=== PATIENT | female | born 1990 | race Hispanic/Latino ===

== ENCOUNTER 2018-04-22 21:43 | Inpatient (IN) | payer MEDICAID ==
[~2018-04-22] VITALS: Ht 162.6 cm; Wt 93.9 kg
[2018-04-22 22:21] LABS: APPEARANCE,URINE Cloudy (CLEAR); BILIRUBIN,URINE Negative (NEGATIVE); COLOR,URINE Dark Yellow (YELLOW); GLUCOSE, URINE (UA) Negative (NEGATIVE); KETONES,URINE Trace mg/dL (NEGATIVE); LEUKOCYTE ESTERASE ,URINE Moderate (NEGATIVE); NITRATE,URINE Negative (NEGATIVE); OCCULT BLOOD,URINE Large (NEGATIVE); PROTEIN,URINE Trace (NEGATIVE)
[2018-04-22 22:47] LABS: BACTERIA,URINE Few /HPF (None Seen); MUCUS,URINE Many LPF (None Seen); SQUAMOUS EPITHELIAL CELL,UR Many /HPF (0-2)
[2018-04-22 23:00] VITALS: BP 125/69
[2018-04-22] MEDS ORDERED: OXYTOCIN-LR 20 UNITS/1000 ML 1,000 ML IV SCH (23:00)
[2018-04-22] MEDS ORDERED: AMPICILLIN 2GM+NS 100ML 100 ML IV SCH (23:00)
[2018-04-22] MEDS ORDERED: FERS325 PO (23:03)
[2018-04-22] MEDS: LACTATED RINGERS 1000ML 1,000 ML IV PRN (23:14)
[2018-04-22 23:15] LABS: HEMATOCRIT 36.7 % (36-48); MEAN CORPUSCULAR HEMOGLOBIN 26.6 pg (27.0-33.0); MEAN CORPUSCULAR HGB CONC 32.6 g/dL (32.0-36.0); MEAN CORPUSCULAR VOLUME 81.5 fL (79-99); PLATELET COUNT (AUTO) 298 K/uL (130-400); RED CELL DISTRIBUTION WIDTH 16.2 % (11.0-15.5); WHITE BLOOD COUNT (AUTO) 14.5 K/uL (4.8-10.8)
[2018-04-23] MEDS ORDERED: LIDOCAINE HCL 1% 20 ML VIAL INJ PRN (00:30)
[2018-04-23] MEDS ORDERED: EPHEDRINE SULFATE 50 MG/ML AMPULE IVP PRN (00:45)
[2018-04-23] MEDS ORDERED: NALOXONE HCL 0.4 MG/1 ML ML IV PRN (00:45)
[2018-04-23] MEDS ORDERED: PROMETHAZINE HCL 25 MG/ML 1ML AMPULE IM PRN (00:45)
[2018-04-23] MEDS ORDERED: LACTATED RINGERS 500 ML 500 ML IV PRN (00:45)
[2018-04-23] MEDS ORDERED: ACETAMINOPHEN-CODEINE 300/30MG TAB PO ONE (00:45)
[2018-04-23] MEDS ORDERED: ROPIVACAINE 0.2%200ML EPIDURAL 200 ML EP SCH (00:45)
[2018-04-23] MEDS ORDERED: LACTATED RINGERS 1000ML 1,000 ML IV ONE ×2 (02:00→08:52)
[2018-04-23] MEDS ORDERED: OXYTOCIN 10 USP UNITS/ML ONE ×2 (02:00→08:53)
[2018-04-23] MEDS ORDERED: LIDOCAINE HCL-MPF 1% 2ML VIAL ONE (02:06)
[2018-04-23] MEDS ORDERED: ACETAMINOPHEN EXTRA STRENGTH 500 MG TABLET ONE (02:17)
[2018-04-23] MEDS: AMPICILLIN 1GM+NS 50ML 50 ML IV SCH ×4 (02:23→15:00)
[2018-04-23] MEDS: MEPERIDINE-PF 50 MG/ML SYG IVP PRN ×2 (02:51→07:00)
[2018-04-23] MEDS: LACTATED RINGERS 1000ML 1,000 ML IV PRN (05:40)
[2018-04-23] MEDS ORDERED: OXYTOCIN 10 USP UNITS/ML 20 UNIT in LACTATED RINGERS 1000ML 1,000 ML IV SCH (07:00)
[2018-04-23] MEDS ORDERED: IBUPROFEN 600 MG TABLET PO PRN (07:45)
[2018-04-23] MEDS ORDERED: BENZOCAINE/LANOLIN/ALOE VERA 60 ML AEROSOL TP PRN (07:45)
[2018-04-23] MEDS ORDERED: DIPH,PERTUSS(ACELL),TET VAC/PF 0.5 ML VIAL IM PRN (07:45)
[2018-04-23] MEDS ORDERED: MEASLES/MUMPS/RUBELLA VACCINE, LIVE 0.5 ML/VIAL SQ PRN (07:45)
[2018-04-23] MEDS ORDERED: LANOLIN 30GM OINTMENT TP PRN (07:45)
[2018-04-23] MEDS ORDERED: ACETAMINOPHEN 325 MG TAB PO PRN (07:45)
[2018-04-23] MEDS ORDERED: OXYTOCIN-LR 20 UNITS/1000 ML 1,000 ML IV SCH ×2 (07:45)
[2018-04-23] MEDS ORDERED: WITCH HAZEL 1 PAD TP PRN (07:45)
[2018-04-23 10:01] VITALS: BP 137/54
[2018-04-23] MEDS: DOCUSATE SODIUM 100 MG CAP PO SCH ×2 (10:14→22:13)
[2018-04-23 10:30] LABS: RAPID PLASMA REAGIN NONREACTIVE (NONREACTIVE)
[2018-04-23 11:34] VITALS: BP 98/60
[2018-04-23] MEDS: IBUPROFEN 100 MG/5 ML SUSP UDCUP PO PRN ×2 (16:03→22:52)
[2018-04-23 16:26] VITALS: BP 104/59
[2018-04-23 20:33] VITALS: BP 98/54
[2018-04-23] MEDS ORDERED: IBUPROFEN 100 MG/5 ML SUSP UDCUP ONE (22:30)
[2018-04-24 00:20] VITALS: BP 93/52
[2018-04-24 04:43] VITALS: BP 91/51
[2018-04-24 05:16] LABS: HEMATOCRIT 28.3 % (36-48); MEAN CORPUSCULAR HEMOGLOBIN 26.9 pg (27.0-33.0); MEAN CORPUSCULAR HGB CONC 32.5 g/dL (32.0-36.0); MEAN CORPUSCULAR VOLUME 82.7 fL (79-99); PLATELET COUNT (AUTO) 275 K/uL (130-400); RED BLOOD CELL COUNT(AUTO) 3.41 MIL/uL (4.00-5.50); RED CELL DISTRIBUTION WIDTH 16.5 % (11.0-15.5); WHITE BLOOD COUNT (AUTO) 15.4 K/uL (4.8-10.8)
[2018-04-24 07:23] VITALS: BP 91/51
[2018-04-24] MEDS: IBUPROFEN 100 MG/5 ML SUSP UDCUP PO PRN (08:11)
[2018-04-24 08:24] LABS: HEPATITIS Bs ANTIGEN SCREEN P Negative (Negative)
[2018-04-24] MEDS: DOCUSATE SODIUM 100 MG CAP PO SCH (09:10)
[2018-04-24 11:26] VITALS: BP 106/63
== END 2018-04-24 14:00 | disposition home or self-care (01) | DRG 560 ==
LOC: EDH 21:43 → LDH 21:44 → OBSVTOIN 22:57 → WSH 04-23 09:40
PROVIDERS: ADMIT Obstetrics & Gynecology; ATTEND Obstetrics & Gynecology
PROC: 10E0XZZ Delivery of Products of Conception, External Approach (ICD-10-PCS; principal; 2018-04-23)
PROC: 10907ZC Drainage of Amniotic Fluid, Therapeutic from Products of Conception, Via Natural or Artificial Opening (ICD-10-PCS; 2018-04-23)
PROC: 3E0R3BZ Introduction of Anesthetic Agent into Spinal Canal, Percutaneous Approach (ICD-10-PCS; 2018-04-23)
PROC: 00HU33Z Insertion of Infusion Device into Spinal Canal, Percutaneous Approach (ICD-10-PCS; 2018-04-23)
PROC: 3E0234Z Introduction of Serum, Toxoid and Vaccine into Muscle, Percutaneous Approach (ICD-10-PCS; 2018-04-23)
DX: O99.214 Obesity complicating childbirth (principal); E66.9 Obesity, unspecified; O70.1 Second degree perineal laceration during delivery; Z37.0 Single live birth; Z68.35 Body mass index [BMI] 35.0-35.9, adult; Z23 Encounter for immunization; Z3A.39 39 weeks gestation of pregnancy
CPT/HCPCS: 36415; 81001; 85027; 86592; 86701; 86850; 86900; 86901; 87340; 87390; 90715; A4314; J0290; J2175; J2550; J2590; J3490; J7120

== ENCOUNTER 2019-05-25 11:27 | Emergency (ER) | payer MEDICAID, OTHER ==
[~2019-05-25 11:27] MED LIST: FERS325 PO
== END 2019-05-25 12:20 | disposition home or self-care (01) ==
LOC: EDH 11:27
DX: J06.9 Acute upper respiratory infection, unspecified (principal)
CPT/HCPCS: 87804; 87880

== ENCOUNTER 2019-06-26 19:16 | Emergency (ER) | payer OTHER | END 2019-06-26 19:41 | disposition home or self-care (01) | LOC: EDH 19:16 | DX: J06.9 Acute upper respiratory infection, unspecified (principal) | CPT/HCPCS: 99281 ==

== ENCOUNTER 2019-09-27 22:46 | Emergency (ER) | payer OTHER, MEDICAID ==
[2019-09-27 23:20] LABS: APPEARANCE,URINE Clear (CLEAR); BILIRUBIN,URINE Negative (NEGATIVE); COLOR,URINE Yellow (YELLOW); GLUCOSE, URINE (UA) Negative (NEGATIVE); KETONES,URINE Negative (NEGATIVE); LEUKOCYTE ESTERASE ,URINE Trace (NEGATIVE); NITRATE,URINE Negative (NEGATIVE); OCCULT BLOOD,URINE Negative (NEGATIVE); PROTEIN,URINE Negative (NEGATIVE); UROBILINOGEN,URINE 0.2 mg/dL (0.2-1.0)
[2019-09-27 23:36] LABS: BACTERIA,URINE Rare /HPF (None Seen); RBC,URINE None Seen /HPF (0-1)
[2019-09-27] MEDS ORDERED: PHENAZOPYRIDINE HCL 200 MG TABLET PO ONE (23:56)
[2019-09-27] MEDS ORDERED: DICYCLOMINE HCL 10 MG/ML 2ML AMP IM ONE (23:56)
[2019-09-27] MEDS ORDERED: SULFAMETHOX-TMP DS 800/160 TAB PO ONE (23:57)
== END 2019-09-28 00:10 | disposition home or self-care (01) ==
LOC: EDH 22:46
DX: O23.41 Unspecified infection of urinary tract in pregnancy, first trimester (principal); Z3A.08 8 weeks gestation of pregnancy
CPT/HCPCS: 81001; 81025; 87088; 99284; J0500

== ENCOUNTER 2020-05-02 19:10 | Inpatient (IN) | payer MEDICAID ==
[~2020-05-02] VITALS: Ht 160 cm; Wt 92.1 kg
[2020-05-02 20:00] VITALS: BP 120/66
[2020-05-02 21:19] LABS: APPEARANCE,URINE Clear (CLEAR); BILIRUBIN,URINE Negative (NEGATIVE); COLOR,URINE Yellow (YELLOW); GLUCOSE, URINE (UA) Negative (NEGATIVE); KETONES,URINE 40 mg/dL (NEGATIVE); LEUKOCYTE ESTERASE ,URINE Small (NEGATIVE); NITRATE,URINE Negative (NEGATIVE); OCCULT BLOOD,URINE Negative (NEGATIVE); PH,URINE 5.5 (5.0-8.0); PROTEIN,URINE Trace mg/dL (NEGATIVE)
[2020-05-02 21:30] LABS: BACTERIA,URINE Few /HPF (None Seen)
[2020-05-02] MEDS ORDERED: AMPICILLIN 2GM+NS 100ML 100 ML IV SCH (21:30)
[2020-05-02 21:31] LABS: MUCUS,URINE Few LPF (None Seen); SQUAMOUS EPITHELIAL CELL,UR Moderate /HPF (0-2)
[2020-05-02] MEDS: LACTATED RINGERS 1000ML 1,000 ML IV PRN (21:46)
[2020-05-02 21:56] LABS: AMPHET/METH SCREEN,URINE NEGATIVE (NEGATIVE); BARBITURATE SCREEN, URINE NEGATIVE (NEGATIVE); BENZODIAZEPINES SCREEN,URINE NEGATIVE (NEGATIVE); CANNABINOID SCREEN,URINE NEGATIVE (NEGATIVE); COCAINE SCREEN,URINE NEGATIVE (NEGATIVE); OPIATE SCREEN,URINE NEGATIVE (NEGATIVE); PHENCYCLIDINE SCREEN,URINE NEGATIVE (NEGATIVE)
[2020-05-02 22:01] LABS: HEMATOCRIT 39.1 % (36-48); MEAN CORPUSCULAR HEMOGLOBIN 26.8 pg (27.0-33.0); MEAN CORPUSCULAR VOLUME 81.3 fL (79-99); RED BLOOD CELL COUNT(AUTO) 4.81 MIL/uL (4.00-5.50); RED CELL DISTRIBUTION WIDTH 15.9 % (11.0-15.5); WHITE BLOOD COUNT (AUTO) 8.5 K/uL (4.8-10.8)
[2020-05-03] MEDS: AMPICILLIN 1GM+NS 50ML 50 ML IV SCH ×4 (01:09→13:35)
[2020-05-03] MEDS ORDERED: PREN1TAB80 PO (02:40)
[2020-05-03] MEDS ORDERED: ACETAMINOPHEN 325 MG TAB PO ONE (02:45)
[2020-05-03] MEDS ORDERED: EPHEDRINE SULFATE 50 MG/ML AMPULE IVP PRN (03:45)
[2020-05-03] MEDS ORDERED: BUTORPHANOL TARTRATE 2 MG/ML IVP PRN (03:45)
[2020-05-03] MEDS ORDERED: LACTATED RINGERS 500 ML 500 ML IV PRN (03:45)
[2020-05-03] MEDS ORDERED: NALOXONE HCL 0.4 MG/1 ML ML IV PRN (03:45)
[2020-05-03] MEDS ORDERED: ROPIVACAINE 0.2% 100ML VIAL 100 ML EP PRN (03:45)
[2020-05-03] MEDS: LACTATED RINGERS 1000ML 1,000 ML IV PRN ×2 (03:55→09:26)
[2020-05-03] MEDS ORDERED: OXYTOCIN-LR 20 UNITS/1000 ML 1,000 ML IV ONE ×3 (04:34→16:30)
[2020-05-03] MEDS ORDERED: OXYTOCIN 10 USP UNITS/ML 20 UNIT in LACTATED RINGERS 1000ML 1,000 ML IV SCH (04:45)
[2020-05-03] MEDS ORDERED: ACETAMINOPHEN-CODEINE 300/30MG TAB PO PRN (14:30)
[2020-05-03] MEDS ORDERED: WITCH HAZEL 1 PAD TP PRN (14:30)
[2020-05-03] MEDS ORDERED: BENZOCAINE/LANOLIN/ALOE VERA 60 ML AEROSOL TP PRN (14:30)
[2020-05-03] MEDS ORDERED: ACETAMINOPHEN 325 MG TAB PO PRN (14:30)
[2020-05-03] MEDS ORDERED: LANOLIN 30GM OINTMENT TP PRN (14:30)
[2020-05-03] MEDS ORDERED: DIPH,PERTUSS(ACELL),TET VAC/PF 0.5 ML VIAL IM PRN (14:30)
[2020-05-03] MEDS ORDERED: MEASLES/MUMPS/RUBELLA VACCINE, LIVE 0.5 ML/VIAL SQ PRN (14:30)
[2020-05-03 16:50] VITALS: BP 113/66
--- NOTE | 2020-05-03 16:50 | NUR ---
PATIENT AMBULATING BACK FROM RESTROOM AT THIS TIME. ABLE TO VOID AND AMBULATE WITHOUT DIFFICULTY. PATIENT AND SIGNIFICANT OTHER ORIENTED TO ROOM. ADVISED PATIENT TO CALL WITH ANY NEEDS OR CONCERNS. CALL LIGHT LEFT IN REACH PATIENT VERBALIZED UNDERSTANDING.
[2020-05-03] MEDS: IBUPROFEN 600 MG TABLET PO PRN (17:02)
[2020-05-03] MEDS: AMOXICILLIN/POTASSIUM CLAV 875-125 TABLET PO SCH (17:16)
[2020-05-03 19:15] VITALS: BP 95/52
[2020-05-03] MEDS: DOCUSATE SODIUM 100 MG CAP PO SCH (21:15)
[2020-05-03 23:24] VITALS: BP 101/45
[2020-05-04] MEDS: IBUPROFEN 600 MG TABLET PO PRN ×2 (02:55→09:13)
[2020-05-04 03:45] VITALS: BP 93/45
[2020-05-04] MEDS: AMPICILLIN 1GM+NS 50ML 50 ML IV SCH ×2 (05:30→09:30)
[2020-05-04] MEDS: AMOXICILLIN/POTASSIUM CLAV 875-125 TABLET PO SCH ×2 (05:32→14:30)
[2020-05-04 07:39] VITALS: BP 109/70
[2020-05-04] MEDS: DOCUSATE SODIUM 100 MG CAP PO SCH (09:12)
[2020-05-04 09:17] LABS: HEPATITIS Bs ANTIGEN SCREEN P Negative (Negative)
[2020-05-04 11:28] VITALS: BP 99/58
--- NOTE | 2020-05-04 15:55 | NUR ---
PATIENT LEFT UNIT VIA WHEELCHAIR WITH BABY IN ARMS. PERSONAL VEHICLE USED FOR TRANSPORTATION, BABY SECURE IN CARSEAT. NO COMPLAINTS OR CONCERNS ADDRESSED FROM PATIENT ON DISCHARGE,
== END 2020-05-04 15:55 | disposition home or self-care (01) | DRG 560 ==
LOC: LDH 19:10 → WSH 05-03 16:50
PROVIDERS: ADMIT Obstetrics & Gynecology; ATTEND Obstetrics & Gynecology
PROC: 10E0XZZ Delivery of Products of Conception, External Approach (ICD-10-PCS; principal; 2020-05-03)
PROC: 10907ZC Drainage of Amniotic Fluid, Therapeutic from Products of Conception, Via Natural or Artificial Opening (ICD-10-PCS; 2020-05-03)
PROC: 3E033VJ Introduction of Other Hormone into Peripheral Vein, Percutaneous Approach (ICD-10-PCS; 2020-05-03)
PROC: 3E0R3BZ Introduction of Anesthetic Agent into Spinal Canal, Percutaneous Approach (ICD-10-PCS; 2020-05-03)
PROC: 00HU33Z Insertion of Infusion Device into Spinal Canal, Percutaneous Approach (ICD-10-PCS; 2020-05-03)
PROC: 3E0234Z Introduction of Serum, Toxoid and Vaccine into Muscle, Percutaneous Approach (ICD-10-PCS; 2020-05-03)
DX: O80 Encounter for full-term uncomplicated delivery (principal); Z3A.40 40 weeks gestation of pregnancy; Z37.0 Single live birth
CPT/HCPCS: 36415; 80305; 81001; 85027; 86592; 86850; 86900; 86901; 87340; 90715; A4314; A4606; G0378; J0290; J2590; J2795; J7120

== ENCOUNTER 2020-09-07 23:47 | Emergency (ER) | payer MEDICAID ==
[~2020-09-07 23:47] MED LIST changes: +PREN1TAB80 PO
[2020-09-08] MEDS ORDERED: ACETAMINOPHEN 325 MG TAB ONE (00:40)
[2020-09-08 00:41] LABS: APPEARANCE,URINE Clear (CLEAR); BILIRUBIN,URINE Negative (NEGATIVE); COLOR,URINE Yellow (YELLOW); GLUCOSE, URINE (UA) Negative (NEGATIVE); KETONES,URINE Negative (NEGATIVE); LEUKOCYTE ESTERASE ,URINE Negative (NEGATIVE); NITRATE,URINE Negative (NEGATIVE); OCCULT BLOOD,URINE Negative (NEGATIVE); PROTEIN,URINE Negative (NEGATIVE); UROBILINOGEN,URINE 0.2 mg/dL (0.2-1.0)
[2020-09-08 00:45] LABS: BASOPHILS % (AUTO) 0.4 % (0.0-5.0); CREATININE 0.6 mg/dL (0.5-1.5); EOSINOPHILS % (AUTO) 1.4 % (0.0-8.0); HEMATOCRIT 36.4 % (36-48); LYMPHOCYTES % (AUTO) 26.5 % (21.0-51.0); MEAN CORPUSCULAR HGB CONC 34.1 g/dL (32.0-36.0); NEUTROPHILS % (AUTO) 63.3 % (40.0-77.0); PLATELET COUNT (AUTO) 368 K/uL (130-400); POTASSIUM 3.6 mmol/L (3.5-5.1); RED BLOOD CELL COUNT(AUTO) 4.28 MIL/uL (4.00-5.50); RED CELL DISTRIBUTION WIDTH 12.6 % (11.0-15.5)
[2020-09-08 01:12] LABS: ALBUMIN 3.5 g/dL (3.5-5.0); BILIRUBIN,TOTAL 0.3 mg/dL (0.2-1.0); TOTAL PROTEIN, SERUM 7.5 g/dL (6.0-8.3)
== END 2020-09-08 01:22 | disposition home or self-care (01) ==
LOC: EDH 23:47
DX: O26.891 Other specified pregnancy related conditions, first trimester (principal); N32.9 Bladder disorder, unspecified; R33.9 Retention of urine, unspecified; Z3A.08 8 weeks gestation of pregnancy
CPT/HCPCS: 36415; 51702; 76770; 76801; 80053; 81003; 84702; 85025

== ENCOUNTER 2020-09-13 03:07 | Emergency (ER) | payer MEDICAID ==
[2020-09-13 03:48] LABS: APPEARANCE,URINE Clear (CLEAR); BILIRUBIN,URINE Negative (NEGATIVE); COLOR,URINE Yellow (YELLOW); GLUCOSE, URINE (UA) Negative (NEGATIVE); KETONES,URINE Negative (NEGATIVE); LEUKOCYTE ESTERASE ,URINE Negative (NEGATIVE); NITRATE,URINE Negative (NEGATIVE); OCCULT BLOOD,URINE Negative (NEGATIVE); PH,URINE 6.5 (5.0-8.0); PROTEIN,URINE Negative (NEGATIVE); UROBILINOGEN,URINE 0.2 mg/dL (0.2-1.0)
== END 2020-09-13 04:27 | disposition home or self-care (01) ==
LOC: EDH 03:07
DX: R33.9 Retention of urine, unspecified (principal)
CPT/HCPCS: 51702; 81003; 87088

== ENCOUNTER 2021-08-03 18:55 | Emergency (ER) | payer MEDICAID ==
[~2021-08-03] VITALS: Ht 160 cm; Wt 94.8 kg
[2021-08-03 18:57] VITALS: BP 133/83
== END 2021-08-03 21:10 | disposition left against medical advice (07) ==
LOC: EDH 18:55
DX: R20.8 Other disturbances of skin sensation (principal); Z53.21 Procedure and treatment not carried out due to patient leaving prior to being seen by health care provider

== ENCOUNTER 2022-10-14 22:03 | Emergency (ER) | payer OTHER, MEDICAID ==
[~2022-10-14] VITALS: Ht 160 cm; Wt 95.3 kg
[~2022-10-14 22:03] MED LIST changes: +CYCL10TA16 PO; +NAPR-1180 PO
[2022-10-14 22:04] VITALS: BP 121/77
== END 2022-10-14 23:58 | disposition home or self-care (01) ==
LOC: EDH 22:09
DX: B34.9 Viral infection, unspecified (principal); R51.9 Headache, unspecified; J02.9 Acute pharyngitis, unspecified; R07.89 Other chest pain; E66.9 Obesity, unspecified; Z20.822 Contact with and (suspected) exposure to COVID-19; Z68.37 Body mass index [BMI] 37.0-37.9, adult; Z79.1 Long term (current) use of non-steroidal anti-inflammatories (NSAID)
CPT/HCPCS: 99284; 71045; 87635; 87880; 87804 ×2; C9803

== ENCOUNTER 2024-05-09 11:47 | Emergency (ER) | payer BC, MEDICAID, OTHER ==
[~2024-05-09] VITALS: Ht 160 cm; Wt 97.5 kg
[2024-05-09 12:57] LABS: BASOPHILS # (AUTO) 0.02 K/uL (0.00-0.20); BASOPHILS % (AUTO) 0.4 % (0.0-5.0); HEMATOCRIT 37.1 % (36-48); IMMATURE GRANULOCYTE ABSOLUTE 0.02 K/uL (0-1); LYMPHOCYTES # (AUTO) 0.6 K/uL (1.0-4.8); LYMPHOCYTES % (AUTO) 12.3 % (21.0-51.0); MEAN CORPUSCULAR HEMOGLOBIN 26.9 pg (27.0-33.0); MEAN CORPUSCULAR HGB CONC 33.7 g/dL (32.0-36.0); MEAN CORPUSCULAR VOLUME 79.8 fL (79-99); MONOCYTES # (AUTO) 0.2 K/uL (0.1-1.0); MONOCYTES % (AUTO) 4.6 % (3.0-13.0); NEUTROPHILS # (AUTO) 4.1 K/uL (1.8-7.7); NEUTROPHILS % (AUTO) 82.3 % (40.0-77.0); PLATELET COUNT (AUTO) 287 K/uL (130-400); RED BLOOD CELL COUNT(AUTO) 4.65 MIL/uL (4.00-5.50); RED CELL DISTRIBUTION WIDTH 13.2 % (11.0-15.5)
[2024-05-09 13:03] LABS: CREATININE 0.8 mg/dL (0.5-1.0); POTASSIUM 3.3 mmol/L (3.5-5.1)
[2024-05-09] MEDS: DiphenhydrAMINE HCL 50 MG/ML VIAL IV STA (14:21)
[2024-05-09] MEDS: ketOROlac 15MG/ML VIAL (15MG/ML) IV STA (14:22)
[2024-05-09] MEDS: metoCLOPRAmide 10 MG/2 ML VIAL IVP STA (14:22)
[2024-05-09] MEDS: 0.9%NACL 1000ML 1,000 ML IV STA (14:22)
[2024-05-09 14:54] LABS: SARS-CoV-2, RNA, NAAT NEGATIVE SARS CoV-2 (NEGATIVE)
[2024-05-09 14:59] LABS: INFLUENZA TYPE A Negative For Type A (NEGATIVE); INFLUENZA TYPE B Negative For Type B (NEGATIVE)
[2024-05-09] MEDS: morPHINE 2 MG SYG IVP STA (15:22)
[2024-05-09 16:32] VITALS: BP 132/70; PULSE 95; RESP 18; TEMP 98.1; O2SAT 98
== END 2024-05-09 16:45 | disposition home or self-care (01) ==
LOC: EDH 11:47
DX: R51.9 Headache, unspecified (principal); Z20.822 Contact with and (suspected) exposure to COVID-19; E66.9 Obesity, unspecified; Z79.899 Other long term (current) drug therapy; Z98.890 Other specified postprocedural states; Z68.30 Body mass index [BMI] 30.0-30.9, adult
CPT/HCPCS: 99284; 96374; 96375; 70450; 87635; 96361; 80048; 84702; 85025; 87804 ×2; 36415; J1200; J2270; J7030; J2765; J1885